=== PATIENT | female | born 1995 | race Caucasian/White ===

== ENCOUNTER 2017-08-05 15:54 | Emergency (ER) | payer MEDICAID ==
[~2017-08-05] VITALS: Ht 172.7 cm; Wt 127.0 kg
[~2017-08-05 15:54] MED LIST: ACET500C5 PO; IBUP-1542 PO
[2017-08-05 15:56] VITALS: Ht 172.7 cm; Wt 127.0 kg
[2017-08-05] MEDS ORDERED: KETOROLAC 30 MG INJ IM STA (16:34)
[2017-08-05 16:47] LABS: URINE BLOOD (Dip) POC Negative (NEGATIVE)
[2017-08-05 17:05] LABS: BASOPHILS % 0.4 % (0.0-2.0); EOSINOPHILS % 0.4 % (0.0-7.0); HEMATOCRIT 39.6 % (37.0-47.0); HEMOGLOBIN 12.6 g/dl (12.0-16.0); LYMPHOCYTES # 1.7 10^3/ul (0.8-2.9); LYMPHOCYTES % 31.7 % (18.0-55.0); MEAN CORPUSCULAR HEMOGLOBIN 28.3 pg (29.0-33.0); MEAN CORPUSCULAR HGB CONC 31.8 g/dl (32.0-37.0); MEAN CORPUSCULAR VOLUME 88.8 fl (72.0-104.0); MEAN PLATELET VOLUME 11.2 fl (7.4-10.4); MONOCYTE # 0.4 10^3/ul (0.3-0.9); MONOCYTES % 7.2 % (0.0-13.0); NEUTROPHIL # 3.2 10^3/ul (1.6-7.5); NEUTROPHILS % 60.1 % (30.0-74.0); PLATELET COUNT 320 10^3/UL (140-415); RED BLOOD COUNT 4.46 10^6/ul (4.20-5.40); RED CELL DISTRIBUTION WIDTH 12.9 % (11.5-14.5); WHITE BLOOD COUNT 5.3 10^3/ul (4.8-10.8)
[2017-08-05 17:12] LABS: ANION GAP 13 (8-16); BLOOD UREA NITROGEN 14 mg/dl (7-20); CALCIUM 9.2 mg/dl (8.4-10.2); CARBON DIOXIDE 29 mmol/L (21-31); CHLORIDE 106 mmol/L (97-110); GLUCOSE 87 mg/dl (70-220); SODIUM 144 mmol/L (135-144)
--- NOTE | 2017-08-05 17:22 | RADRPT ---
PROCEDURE: Chest x-ray CLINICAL INDICATION: Chest pain TECHNIQUE: Chest single view COMPARISON: None FINDINGS: The heart is normal in size. The pulmonary vessels are normal in caliber. The lungs are clear. Th e costophrenic angles are sharp. The visualized bony thorax is unremarkable. IMPRESSION: No acute cardiopulmonary disease. RPTAT: HH .Ollie Abdul MD, Date Time Electronically viewed and signed by .Ollie Abdul MD, MD on 08/05/2017 17:21 .W/
[2017-08-05 17:26] LABS: TROPONIN-I < 0.012 ng/ml (0.00-0.12)
[2017-08-05] MEDS ORDERED: IBUP-1542 PO (17:54)
[2017-08-05 18:39] VITALS: BP 140/71; PULSE 89; RESP 16
--- NOTE | 2017-08-05 21:54 | ERD ---
ER Documentation Chief Complaint Date/Time DATE: 08/05/17 TIME: 21:48 Chief Complaint lt side chest pain radiating to shlouder since 0600 worse with inspiration HPI This is a 21-year-old female presenting to the emergency department for left- sided chest pain that radiates to left shoulder 8 hours. Patient states symptoms started at 6 AM. Patient describes pain as sharp and worse with inspiration. No cough, shortness of breath or difficulty breathing. No wheezing. No difficulty swallowing or drooling. Denies fevers or chills. No abdominal pain, nausea, vomiting or diarrhea. Patient did not take any medications for this. Patient states this has happened 4 times before and spontaneously resolve. The preivous episodes of chest pain have not lasted as long as today. ROS All systems reviewed and are negative except as per history of present illness. Medications Home Meds Active Scripts Ibuprofen* (Motrin*) 600 Mg Tab, 600 MG PO Q6, #30 TAB Prov:ANASTACIO CROUCH NP 08/05/17 Acetaminophen* (Tylophen*) 500 Mg Capsule, 1 CAP PO Q6H Y for PAIN AND OR ELEVATED TEMP, #15 CAP Prov:GEMMA BECKFORD MD 04/19/16 Ibuprofen* (Motrin*) 600 Mg Tab, 600 MG PO Q6, #20 TAB Prov:GEMMA BECKFORD MD 02/21/16 Allergies Allergies: Coded Allergies: No Known Allergy (Unverified , 11/03/13) PMhx/Soc Medical and Surgical Hx: pt denies Medical Hx, pt denies Surgical Hx History of Surgery: No Anesthesia Reaction: No Hx Neurological Disorder: No Hx Respiratory Disorders: No Hx Cardiac Disorders: No Hx Psychiatric Problems: No Hx Miscellaneous Medical Probl: No Hx Alcohol Use: No Hx Substance Use: Yes (MARIJUANA ) Hx Tobacco Use: No Smoking Status: Never smoker Physical Exam Vitals Vital Signs Date Time Temp Pulse Resp B/P Pulse Ox O2 Delivery O2 Flow Rate FiO2 08/05/17 18:39 89 16 140/71 99 Room Air 08/05/17 15:56 99.2 102 18 157/98 100 Physical Exam Const: No acute distress, alert Head: Atraumatic Eyes: Normal Conjunctiva ENT: Normal External Ears, Nose and Mouth. Neck: Full range of motion..~ No meningismus. Resp: Clear to auscultation bilaterally. No wheezing, rhonchi or crackles. No stridor or labored breathing. No intercostal retractions. Patient is talking in complete sentences. Cardio: Regular rate and rhythm, no murmurs Abd: Soft, non tender, non distended. Normal bowel sounds Skin: No petechiae or rashes Back: No midline or flank tenderness Ext: No cyanosis, or edema Neur: Awake and alert Psych: Normal Mood and Affect Result Diagram: 08/05/17 1600 08/05/17 1600 Results 24 hrs Laboratory Tests Test 08/05/17 16:00 08/05/17 16:55 White Blood Count 5.310^3/ul Red Blood Count 4.4610^6/ul Hemoglobin 12.6g/dl Hematocrit 39.6% Mean Corpuscular Volume 88.8fl Mean Corpuscular Hemoglobin 28.3pg Mean Corpuscular Hemoglobin Concent 31.8g/dl Red Cell Distribution Width 12.9% Platelet Count 48981^3/UL Mean Platelet Volume 11.2fl Neutrophils % 60.1% Lymphocytes % 31.7% Monocytes % 7.2% Eosinophils % 0.4% Basophils % 0.4% Nucleated Red Blood Cells % 0.0/100WBC Neutrophils # 3.210^3/ul Lymphocytes # 1.710^3/ul Monocytes # 0.410^3/ul Eosinophils # 0.010^3/ul Basophils # 0.010^3/ul Nucleated Red Blood Cells # 0.010^3/ul Sodium Level 144mmol/L Potassium Level 4.0mmol/L Chloride Level 106mmol/L Carbon Dioxide Level 29mmol/L Anion Gap 13 Blood Urea Nitrogen 14mg/dl Creatinine 0.80mg/dl Glucose Level 87mg/dl Calcium Level 9.2mg/dl Troponin I < 0.012ng/ml Bedside Urine pH (LAB) 6.0 Bedside Urine Protein (LAB) Negative Bedside Urine Glucose (UA) Negative Bedside Urine Ketones (LAB) Negative Bedside Urine Blood Negative Bedside Urine Nitrite (LAB) Negative Bedside Urine Leukocyte Esterase (L Negative Current Medications Medications (Trade) Dose Ordered Sig/Juanita Route PRN Reason Start Time Stop Time Status Last Admin Dose Admin Ketorolac Tromethamine (Toradol) 30 mg ONCE STAT IM 08/05/17 16:34 08/05/17 16:37 DC 08/05/17 17:27 Procedures/MDM [place] [address] Radiology Main Line: [phone] DIAGNOSTIC IMAGING REPORT Patient: WILMER UREÑA : 1995 Age: 21 Sex: F MR #: [id number] DOS: 08/05/17 1634 Ordering MD: ANASTACIO FUNES NP Location: [facility] Room/Bed: PROCEDURE: Chest x-ray CLINICAL INDICATION: Chest pain TECHNIQUE: Chest single view COMPARISON: None FINDINGS: The heart is normal in size. The pulmonary vessels are normal in caliber. The lungs are clear. The costophrenic angles are sharp. The visualized bony thorax is unremarkable. IMPRESSION: No acute cardiopulmonary disease. MDM: This is a 21-year-old female presenting to emergency department for left- sided chest wall pain that radiates to left shoulder 8 hours. Patient has had similar chest wall pain before that has resolved spontaneously. Patient states pain has not lasted as long previously. Labs and urine ordered. Patient given Toradol 30 mg IM. CBC shows no significant anemia or infection. BMP shows no significant electrolyte imbalance. Troponin is less than 0.012. Urine is negative for infection. Urine is negative. Chest x-ray reviewed by radiologist as no acute cardiopulmonary disease. Upon reassessment, patient states pain has improved. Vital signs remained stable. No tachycardia. No hypertension. No signs or symptoms of respiratory distress. Differential diagnosis includes but not limited to pneumonia, bronchitis, pleurisy, costochondritis, gastroesophageal reflux,musculoskeletal chest pain and esophageal spasm. Low suspicion for acute coronary syndrome, pulmonary embolism, pneumothorax, aortic dissection and myocardial infarction. Patient is appropriate for outpatient management and will be discharged as stable. Instructed patient to follow up with primary care provider in the next 24-48 hours. Discussed with patient that she may need echocardiogram and referral to strip deburrer and patient verbalized understanding. Return to ED for worsening pain, abdominal pain, vomiting, diarrhea, high fever or any new or worsening symptoms. Patient verbalizes understanding. All questions answered at discharge. Patient discharged in compliance with [facility] treat and release policy. Disclaimer: Inadvertent spelling and grammatical errors are likely due to EHR/ dictation software use and do not reflect on the overall quality of patient care. Also, please note that the electronic time recorded on this note does not necessarily reflect the actual time of the patient encounter. Departure Diagnosis: Primary Impression: Chest pain Chest pain type: chest pain on breathing Qualified Code: R07.1 - Chest pain on breathing Condition: Stable Patient Instructions: Chest Pain, Uncertain Cause Referrals: DEEPIKA SCALES (PCP) [facility] YOU HAVE RECEIVED A MEDICAL SCREENING EXAM AND THE RESULTS INDICATE THAT YOU DO NOT HAVE A CONDITION THAT REQUIRES URGENT TREATMENT IN THE EMERGENCY DEPARTMENT. FURTHER EVALUATION AND TREATMENT OF YOUR CONDITION CAN WAIT UNTIL YOU ARE SEEN IN YOUR DOCTORS OFFICE WITHIN THE NEXT 1-2 DAYS. IT IS YOUR RESPONSIBILITY TO MAKE AN APPOINTMENT FOR FOLOW-UP CARE. IF YOU HAVE A PRIMARY DOCTOR --you should call your primary doctor and schedule an appointment IF YOU DO NOT HAVE A PRIMARY DOCTOR YOU CAN CALL OUR PHYSICIAN REFERRAL HOTLINE AT IF YOU CAN NOT AFFORD TO SEE A PHYSICIAN YOU CAN CHOSE FROM THE FOLLOWING [facility] [address] [facility]. [facility] [address] [facility]. [facility] [address] [facility] [facility] [address] [facility] [facility] [address] [facility]. [address] [facility]. [facility] YOU HAVE RECEIVED A MEDICAL SCREENING EXAM AND THE RESULTS INDICATE THAT YOU DO NOT HAVE A CONDITION THAT REQUIRES URGENT TREATMENT IN THE EMERGENCY DEPARTMENT. FURTHER EVALUATION AND TREATMENT OF YOUR CONDITION CAN WAIT UNTIL YOU ARE SEEN IN YOUR DOCTORS OFFICE WITHIN THE NEXT 1-2 DAYS. IT IS YOUR RESPONSIBILITY TO MAKE AN APPOINTMENT FOR FOLOW-UP CARE. IF YOU HAVE A PRIMARY DOCTOR --you should call your primary doctor and schedule and appointment IF YOU DO NOT HAVE A PRIMARY DOCTOR YOU CAN CALL OUR PHYSICIAN REFERRAL HOTLINE AT . IF YOU CAN NOT AFFORD TO SEE A PHYSICIAN YOU CAN CHOSE FROM THE FOLLOWING [facility] INSTITUTIONS: [facility] [address] [place] [address] [facility] [address] [place] [address] [facility] [address] [place] [address] Additional Instructions: Call your primary care doctor TOMORROW for an appointment during the next 2-3 days.See the doctor sooner or return here if your condition worsens before your appointment time. Return to ED for any high fever, chest pain, difficulty breathing, shortness breath, wheezing, vomiting, diarrhea, abdominal pain or any new or worsening symptoms. ANASTACIO CROUCH NP Aug 05, 2017 21:54
== END 2017-08-05 18:40 | disposition home or self-care (01) ==
LOC: FTE 15:54
DX: R07.1 Chest pain on breathing (principal)
CPT/HCPCS: 71010; 80048; 81003; 84484; 85025; 96372; J1885; Z7502

== ENCOUNTER 2017-08-07 17:40 | Emergency (ER) | payer MEDICAID ==
[~2017-08-07] VITALS: Wt 128.0 kg
[2017-08-07] MEDS ORDERED: KETOROLAC 60 MG INJ IM STA (20:35)
[2017-08-07] MEDS ORDERED: ACETAMINOPHEN 325 MG TAB PO ONE (21:00)
--- NOTE | 2017-08-07 21:07 | ERD ---
ER Documentation Chief Complaint Date/Time DATE: 08/07/17 TIME: 21:05 Chief Complaint LEFT RIB PAIN, ONSET 2 DAYS, MILD SOB HPI 21-year-old female presents here to emergency department for complaints of left chest pain left rib pain that started 2 days ago, patient has been having on and off shortness of breath and worsening pain upon taking a deep breath, sharp pain, 4/10 scale, intermittent pain. Patient started to have fever today. Patient denies any numbness or tingling. Patient denies any other symptoms. Patient denies any cough. Patient denies any wheezing. Patient did not take any medications to help with symptoms. ROS All systems reviewed and are negative except as per history of present illness. Medications Home Meds Active Scripts Ibuprofen* (Motrin*) 600 Mg Tab, 600 MG PO Q6, #30 TAB Prov:ANASTACIO CROUCH NP 08/05/17 Acetaminophen* (Tylophen*) 500 Mg Capsule, 1 CAP PO Q6H Y for PAIN AND OR ELEVATED TEMP, #15 CAP Prov:GEMMA BECKFORD MD 04/19/16 Ibuprofen* (Motrin*) 600 Mg Tab, 600 MG PO Q6, #20 TAB Prov:GEMMA BECKFORD MD 02/21/16 Allergies Allergies: Coded Allergies: No Known Allergy (Unverified , 11/03/13) PMhx/Soc Medical and Surgical Hx: pt denies Medical Hx, pt denies Surgical Hx History of Surgery: No Anesthesia Reaction: No Hx Neurological Disorder: No Hx Respiratory Disorders: No Hx Cardiac Disorders: No Hx Psychiatric Problems: No Hx Miscellaneous Medical Probl: No Hx Alcohol Use: No Hx Substance Use: Yes (MARIJUANA ) Hx Tobacco Use: No Smoking Status: Light tobacco smoker FmHx Family History: No coronary disease, No diabetes, No other Physical Exam Vitals Vital Signs Date Time Temp Pulse Resp B/P Pulse Ox O2 Delivery O2 Flow Rate FiO2 08/07/17 17:43 100.2 98 18 136/83 100 Physical Exam GENERAL: The patient is well developed and appropriate for usual state of health, in no apparent distress. CHEST: Clear to auscultation bilaterally. There are no rales, wheezes or rhonchi. HEART: Regular rate and rhythm. No murmurs, clicks, rubs or gallops. No S3 or S4. ABDOMEN: Soft, nontender and nondistended. Good bowel sounds. No rebound or guarding. No gross peritonitis. No gross organomegaly or masses. No Lopez sign or McBurney point tenderness. BACK: No midline or flank tenderness. EXTREMITIES: Equal pulses bilaterally. There is no peripheral clubbing, cyanosis or edema. No focal swelling or erythema. Full range of motion. Grossly neurovascularly intact. NEURO: Alert and oriented. Cranial nerves 2-12 intact. Motor strength in all 4 extremities with 5/5 strength. Sensation grossly intact. Normal speech and gait. SKIN: There is no apparent rash or petechia. The skin is warm and dry. HEMATOLOGIC AND LYMPHATIC: There is no evidence of excessive bruising or lymphedema. No gross cervical, axillary, or inguinal lymphadenopathy. Result Diagram: 08/07/17210608/07/172106 Results 24 hrs Laboratory Tests Test 08/07/17 21:05 08/07/17 21:07 Urine Color YELLOW Urine Clarity SLIGHTLY CLOUDY Urine pH 6.0 Urine Specific [place] 1.024 Urine Ketones NEGATIVEmg/dL Urine Nitrite NEGATIVEmg/dL Urine Bilirubin NEGATIVEmg/dL Urine Urobilinogen 1+mg/dL Urine Leukocyte Esterase NEGATIVELeu/ul Urine Microscopic RBC 1/HPF Urine Microscopic WBC 0/HPF Urine Amorphous Crystals FEW/HPF Urine Mucus FEW/HPF Urine Hemoglobin NEGATIVEmg/dL Urine Glucose NEGATIVEmg/dL Urine Total Protein NEGATIVEmg/dl White Blood Count 5.410^3/ul Red Blood Count 4.4210^6/ul Hemoglobin 12.6g/dl Hematocrit 39.0% Mean Corpuscular Volume 88.2fl Mean Corpuscular Hemoglobin 28.5pg Mean Corpuscular Hemoglobin Concent 32.3g/dl Red Cell Distribution Width 12.7% Platelet Count 09956^3/UL Mean Platelet Volume 10.9fl Neutrophils % 54.1% Lymphocytes % 33.4% Monocytes % 11.1% Eosinophils % 0.6% Basophils % 0.6% Nucleated Red Blood Cells % 0.0/100WBC Neutrophils # 2.910^3/ul Lymphocytes # 1.810^3/ul Monocytes # 0.610^3/ul Eosinophils # 0.010^3/ul Basophils # 0.010^3/ul Nucleated Red Blood Cells # 0.010^3/ul Sodium Level 144mmol/L Potassium Level 4.3mmol/L Chloride Level 105mmol/L Carbon Dioxide Level 29mmol/L Anion Gap 14 Blood Urea Nitrogen 14mg/dl Creatinine 0.88mg/dl Glucose Level 91mg/dl Calcium Level 9.2mg/dl Total Bilirubin 0.2mg/dl Direct Bilirubin 0.00mg/dl Indirect Bilirubin 0.2mg/dl Aspartate Amino Transf (AST/SGOT) 22IU/L Alanine Aminotransferase (ALT/SGPT) 30IU/L Alkaline Phosphatase 83IU/L Total Protein 8.8g/dl Albumin 4.4g/dl Globulin 4.40g/dl Albumin/Globulin Ratio 1.00 Current Medications Medications (Trade) Dose Ordered Sig/Juanita Route PRN Reason Start Time Stop Time Status Last Admin Dose Admin Ketorolac Tromethamine (Toradol) 60 mg ONCE STAT IM 08/07/17 20:35 08/07/17 20:37 DC 08/07/17 21:26 Acetaminophen (Tylenol Tab) 650 mg ONCE ONCE PO 08/07/17 21:00 08/07/17 21:01 DC 08/07/17 21:26 Patient was given medication for pain here in emergency department, after treatment, patient verbalized feeling much better. Patient's pain is improved. EKG was done, read by me and is normal sinus rhythm at a rate of 89, normal axis , there is no ST changes or changes in the EKG that indicates any cardiac emergencies at this time. Patient's EKG was also reviewed by Dr. Fam. Impression: no acute findings on EKG Microbiology INFLUENZA A & B BY EIA Final INFLU A&B BY EIA INFLUENZA A NEGATIVE (Ref Range Neg) INFLUENZA B NEGATIVE (Ref Range Neg) PROCEDURE: XR Chest. CLINICAL INDICATION: Shortness of breath. Pain.. TECHNIQUE: Single frontal chest x-ray. COMPARISON: 08/05/2017 FINDINGS: The cardiomediastinal silhouette is unremarkable. There is no congestive heart failure.. No focal infiltrate is seen. There is no pleural effusion. There is no pneumothorax. The osseous structures are unremarkable. IMPRESSION: 1. No active disease. RPTAT: HMVK .Ismael Hogue MD, MD Date Time Electronically viewed and signed by .Ismael Hogue MD, MD on 08/07/2017 21:38 .K/ CC: [employer] H[employer] PROCEDURE: Left rib x-rays CLINICAL INDICATION: Shortness of breath, chest pain. TECHNIQUE: 4 views of the left ribs. COMPARISON: None available. FINDINGS: No displaced rib fracture is identified. There is no pneumothorax. The left lung is clear. The cardiac silhouette is partially imaged. There is no pleural effusion. IMPRESSION: 1. No rib fracture is identified, although the presence of a nondisplaced rib fracture cannot be excluded. RPTAT: HTAR .Dileep Brown MD, MD Date Time Electronically viewed and signed by .Dileep Brown MD, MD on 08/07/2017 22:32 .R/ CC: [employer]GER Procedures/[facility] Medical Decision Making: Symptoms nonspecific at this time, possible viral syndrome, can be musculoskeletal pain. Chest x-ray does not show any pneumonia , rib series does not show any fractures. Lab testing does not show any leukocytosis or bandemia. There is low suspicion for cardiopulmonary emergencies at this time. Patient has low risk factors. EKG is normal, there is no changes in the EKG that indicates cardiac emergencies. Chest X-ray does not show cardiopulmonary emergencies at this time. There is low suspicion for aortic aneurysm, myocardial infarction, pneumothorax, pleural effusion, pulmonary embolism, or any other cardiopulmonary emergencies at this time. She was given for tramadol for severe pain, is advised to follow-up with primary care doctor in 2-3 days, continue ibuprofen. Patient is advised to return to emergency department for any worsening symptoms. Dispostion: Home. Stable Disclaimer: Inadvertent spelling and grammatical errors are likely due to EHR/ dictation software use and do not reflect on the overall quality of patient care. Also, please note that the electronic time recorded on this note does not necessarily reflect the actual time of the patient encounter. Departure Diagnosis: Primary Impression: Atypical chest pain Condition: Stable Patient Instructions: Chest Pain, Uncertain Cause MAUREEN HUNTER NP Aug 07, 2017 21:07
[2017-08-07 21:18] LABS: BASOPHILS % 0.6 % (0.0-2.0); EOSINOPHILS % 0.6 % (0.0-7.0); HEMOGLOBIN 12.6 g/dl (12.0-16.0); LYMPHOCYTES # 1.8 10^3/ul (0.8-2.9); LYMPHOCYTES % 33.4 % (18.0-55.0); MEAN CORPUSCULAR HEMOGLOBIN 28.5 pg (29.0-33.0); MEAN CORPUSCULAR HGB CONC 32.3 g/dl (32.0-37.0); MEAN CORPUSCULAR VOLUME 88.2 fl (72.0-104.0); MEAN PLATELET VOLUME 10.9 fl (7.4-10.4); MONOCYTE # 0.6 10^3/ul (0.3-0.9); MONOCYTES % 11.1 % (0.0-13.0); NEUTROPHIL # 2.9 10^3/ul (1.6-7.5); NEUTROPHILS % 54.1 % (30.0-74.0); PLATELET COUNT 318 10^3/UL (140-415); RED BLOOD COUNT 4.42 10^6/ul (4.20-5.40); RED CELL DISTRIBUTION WIDTH 12.7 % (11.5-14.5); WHITE BLOOD COUNT 5.4 10^3/ul (4.8-10.8)
[2017-08-07 21:24] LABS: ADD UMIC NO; UR AMORPHOUS CRYSTAL FEW /HPF (NONE SEEN); UR ASCORBIC ACID 40 mg/dL (NEGATIVE); UR BILIRUBIN (Dip) NEGATIVE (NEGATIVE); UR BLOOD (Dip) NEGATIVE (NEGATIVE); UR CLARITY SLIGHTLY CLOUDY (CLEAR); UR COLOR YELLOW (YELLOW); UR GLUCOSE (Dip) NEGATIVE (NEGATIVE); UR KETONES (Dip) NEGATIVE (NEGATIVE); UR LEUKOCYTE ESTERASE (Dip) NEGATIVE Leu/ul (NEGATIVE); UR MUCUS FEW /HPF (NONE SEEN); UR NITRITE (Dip) NEGATIVE (NEGATIVE); UR RBC 1 /HPF (0-5); UR SPECIFIC GRAVITY (Dip) 1.024 (1.003-1.030); UR TOTAL PROTEIN (Dip) NEGATIVE (NEGATIVE); UR UROBILINOGEN (Dip) 1+ mg/dL (NEGATIVE)
[2017-08-07 21:37] LABS: ALBUMIN 4.4 g/dl (3.3-4.9); BILIRUBIN,INDIRECT 0.2 mg/dl (0-1.1); BILIRUBIN,TOTAL 0.2 mg/dl (0.2-1.3); CALCIUM 9.2 mg/dl (8.4-10.2); CREATININE 0.88 mg/dl (0.44-1.00); POTASSIUM 4.3 mmol/L (3.5-5.1); TOTAL PROTEIN 8.8 g/dl (6.1-8.1)
--- NOTE | 2017-08-07 21:38 | RADRPT ---
PROCEDURE: XR Chest. CLINICAL INDICATION: Shortness of breath. Pain.. TECHNIQUE: Single frontal chest x-ray. COMPARISON: 08/05/2017 FINDINGS: The cardiomediastinal silhouette is unremarkable. There is no congestive heart failure.. No focal i nfiltrate is seen. There is no pleural effusion. There is no pneumothorax. The osseous structures are unremarkable. IMPRESSION: 1. No active disease. RPTAT: HMVK .Imsael Hogue MD, Date Time Electronically viewed and signed by .Ismael Hogue MD, MD on 08/07/2017 21:38 .K/
--- NOTE | 2017-08-07 22:33 | RADRPT ---
PROCEDURE: Left rib x-rays CLINICAL INDICATION: Shortness of breath, chest pain. TECHNIQUE: 4 views of the left ribs. COMPARISON: None available. FINDINGS: No displaced rib fracture is identified. There is no pneumothorax. The left lung is clear. The car diac silhouette is partially imaged. There is no pleural effusion. IMPRESSION: 1. No rib fracture is identified, although the presence of a nondisplaced rib fracture cannot be ex cluded. RPTAT: HTAR .Dileep Brown MD, Date Time Electronically viewed and signed by .Dileep Brown MD, on 08/07/2017 22:32 .R/
[2017-08-07] MEDS ORDERED: TRAM50TA2 PO (22:48)
[2017-08-07 23:13] VITALS: BP 135/86; PULSE 81; RESP 16
== END 2017-08-07 23:15 | disposition home or self-care (01) ==
LOC: FTE 17:40
DX: R07.81 Pleurodynia (principal); F17.210 Nicotine dependence, cigarettes, uncomplicated
CPT/HCPCS: 71010; 71100; 80053; 81001; 85025; 87400; J1885; Z7610; 36415; 81003; 93005; 96372